=== PATIENT | female | born 1935 | race Caucasian/White ===

== ENCOUNTER 2020-09-04 08:19 | Emergency (ER) | payer MEDICARE, OTHER ==
[~2020-09-04] VITALS: Ht 165.1 cm; Wt 77.1 kg
[2020-09-04 09:14] LABS: Basophils # (auto) 0 10 ^3/uL (0-0.2); Basophils % (auto) 0.2 % (0.0-2.0); Eosinophils # (auto) 0 10 ^3/uL (0-0.8); Hematocrit 41.8 % (36.0-46.0); Hemoglobin 13.8 g/dL (12.2-16.2); Lymphocytes # (auto) 0.3 10 ^3/uL (0.4-5.4); Lymphocytes % (auto) 10.8 % (10.0-50.0); Mean Corpuscular Hemoglobin 28.9 pg (28.0-32.0); Mean Corpuscular Volume 87.3 fL (80.0-100.0); Monocytes # (auto) 0.2 10 ^3/uL (0-1.3); Monocytes % (auto) 5.1 % (0.0-12.0); Neutrophils # (auto) 2.7 10 ^3/uL (1.6-8.6); Neutrophils % (auto) 83.9 % (37.0-80.0); Nucleated Red Blood Cells % 0.3 %; Red Blood Cells 4.78 10^6/uL (4.0-5.20); Red Cell Distribution Width 14.1 % (11.8-14.3); White Blood Cell 3.2 10^3/uL (4.4-10.8)
[2020-09-04 09:34] LABS: INR 1.07 (0.9-1.15)
[2020-09-04 09:38] LABS: Albumin 3.2 g/dL (3.4-5.0); Anion Gap 7 (5-15); Blood Urea Nitrogen 27 mg/dL (7-18); Calcium 8.2 mg/dL (8.5-10.1); Carbon Dioxide 22 mmol/L (21-32); Chloride 109 mmol/L (98-107); Glucose 58 mg/dL (74-106); Magnesium 2.3 mg/dL (1.6-2.6); Potassium 3.7 mmol/L (3.5-5.1); Sodium 138 mmol/L (136-145)
[2020-09-04 09:45] LABS: Alanine Aminotransferase 27 U/L (13-56); Alkaline Phosphatase 68 U/L (45-117); Aspartate Aminotransferase 44 U/L (15-37); BUN/Creatinine Ratio 16.7; Bilirubin, Total 0.4 mg/dL (0.2-1.0); GFR African American 39 mL/min; GFR Non-African American 32 mL/min; Total Protein 7.4 g/dL (6.4-8.2)
[2020-09-04 09:57] LABS: CRP High Sensitivity 8.95 mg/dL (< 0.3)
[2020-09-04] MEDS ORDERED: DEXTROSE 10% 1,000 ML IV ONE (10:15)
[2020-09-04] MEDS ORDERED: AZITHROMYCIN 500MG/ 250ML 250 ML IV ONE (10:15)
[2020-09-04] MEDS ORDERED: DexAMETHasone SOD PHOS 10MG/1ML VIAL INJ IV ONE (10:15)
[2020-09-04] MEDS ORDERED: cefTRIAXone 1GM/50ML D5W 50 ML IV ONE (10:15)
[2020-09-04 16:48] VITALS: BP 122/53
== END 2020-09-04 17:14 | disposition short-term general hospital (02) ==
LOC: ER 08:19 → EDBD 08:19 → ER 17:14
DX: U07.1 COVID-19 (principal); J12.82 Pneumonia due to coronavirus disease 2019; E11.9 Type 2 diabetes mellitus without complications
CPT/HCPCS: 36415; 71045; 80053; 82728; 82962; 83605; 83615; 83735; 84484; 85025; 85610; 85730; 86141; 87040; 87426; 93005; 96361; 96365; 96366; 96368; 96375; 99291; J0456; J0696; J1100

== ENCOUNTER 2020-09-14 05:49 | Emergency (ER) | payer OTHER ==
[~2020-09-14] VITALS: Ht 165.1 cm; Wt 72.6 kg
[2020-09-14] MEDS ORDERED: SODIUM CHLORIDE 0.9% 250 ML IV ONE (06:30)
[2020-09-14 07:19] LABS: Basophils # (auto) 0 10 ^3/uL (0-0.2); Basophils % (auto) 0.1 % (0.0-2.0); Eosinophils # (auto) 0 10 ^3/uL (0-0.8); Eosinophils % (auto) 0.1 % (0.0-7.0); Hematocrit 45.9 % (36.0-46.0); Hemoglobin 15.5 g/dL (12.2-16.2); Lymphocytes # (auto) 0.3 10 ^3/uL (0.4-5.4); Lymphocytes % (auto) 3.3 % (10.0-50.0); Mean Corpuscular Hemoglobin 29.4 pg (28.0-32.0); Mean Corpuscular Hgb Conc. 33.8 g/dL (32.0-36.0); Mean Corpuscular Volume 87.2 fL (80.0-100.0); Monocytes # (auto) 0.5 10 ^3/uL (0-1.3); Monocytes % (auto) 6.8 % (0.0-12.0); Neutrophils # (auto) 7.1 10 ^3/uL (1.6-8.6); Neutrophils % (auto) 89.7 % (37.0-80.0); Platelet Count (auto) 115 10^3/uL (140-450); Red Blood Cells 5.26 10^6/uL (4.0-5.20); Red Cell Distribution Width 13.6 % (11.8-14.3); White Blood Cell 7.9 10^3/uL (4.4-10.8)
[2020-09-14 07:26] LABS: Anion Gap 7 (5-15); BUN/Creatinine Ratio 34.4; Blood Urea Nitrogen 45 mg/dL (7-18); Calcium 9.4 mg/dL (8.5-10.1); Carbon Dioxide 27 mmol/L (21-32); Chloride 104 mmol/L (98-107); GFR African American 50 mL/min; GFR Non-African American 41 mL/min; Glucose 283 mg/dL (74-106); Potassium 4.8 mmol/L (3.5-5.1); Sodium 138 mmol/L (136-145)
[2020-09-14] MEDS ORDERED: SODIUM CHLORIDE 0.9% 1,000 ML IV ONE (07:45)
[2020-09-14] MEDS ORDERED: MECLIZINE HCL 25 MG TAB PO ONE (07:45)
[2020-09-14] MEDS ORDERED: ZINC SULFATE 220mg CAP or TAB PO ONE (08:45)
[2020-09-14] MEDS ORDERED: ASCORBIC ACID 500 MG TAB PO ONE (08:45)
[2020-09-14] MEDS ORDERED: AZITHROMYCIN 500MG/ 250ML 250 ML IV ONE (08:45)
[2020-09-14] MEDS ORDERED: CHOLECALCIFEROL (VITD3) 2,000 UNIT CAP/TAB PO ONE (08:45)
[2020-09-14 09:14] LABS: Lactic Acid w/Reflex 2.8 mmol/L (0.4-2.0)
[2020-09-14 11:31] LABS: Urine Bacteria NONE SEEN /hpf (None Seen); Urine Blood Negative /uL (Negative); Urine Specific Gravity 1.026 (1.001-1.035); Urine WBC 7 /hpf (0 - 5)
[2020-09-14 16:42] VITALS: BP 120/33
== END 2020-09-14 17:01 | disposition short-term general hospital (02) ==
LOC: ER 05:49 → EDBD 05:49 → ER 17:01
DX: U07.1 COVID-19 (principal); R42 Dizziness and giddiness; R55 Syncope and collapse; E11.65 Type 2 diabetes mellitus with hyperglycemia; E11.21 Type 2 diabetes mellitus with diabetic nephropathy; E05.90 Thyrotoxicosis, unspecified without thyrotoxic crisis or storm
CPT/HCPCS: 36415; 70450; 71045; 80048; 81001; 83605; 83735; 84443; 84484; 85025; 87040; 87426; 93005; 96361; 96365; 96366; 99285; J0456; J7030; J7050; J8597

== ENCOUNTER 2021-12-13 07:32 | Inpatient (IN) | payer OTHER ==
[2021-12-13] VITALS (42 sets, daily range): BP systolic 47–147; BP diastolic 25–123
[~2021-12-13] VITALS: Ht 157.5 cm; Wt 74.9 kg
[2021-12-13] MEDS ORDERED: CLOPIDOGREL BISULFATE 75 MG TAB PO ONE (07:45)
[2021-12-13] MEDS ORDERED: HEPARIN SODIUM (PORCINE) 5000 UNITS/ML 1ML VIAL IV ONE (07:45)
[2021-12-13] MEDS ORDERED: HEPARIN DRIP/D5W 100UNITS/ML 250 ML IV SCH (07:45)
[2021-12-13] MEDS ORDERED: ATROPINE SULFATE 1 MG/1 ML VIAL ONE (07:48)
[2021-12-13] MEDS ORDERED: HEPARIN DRIP/D5W 100UNITS/ML 250 ML IV ONE (07:49)
[2021-12-13] MEDS ORDERED: IODIXANOL 320MG/ML 100ML BTL IV ONE ×2 (07:58→08:55)
[2021-12-13] MEDS ORDERED: LIDOCAINE 2%HCL (LOCAL ANESTH.) INJ 20ML MDV ONE (07:58)
[2021-12-13] MEDS ORDERED: ASPirin 81 mg TAB PO ONE (08:00)
[2021-12-13] MEDS ORDERED: ATROPINE SULF 1 MG/10ml SYR IV ONE (08:00)
[2021-12-13 08:11] LABS: Basophils # (auto) 0 10 ^3/uL (0-0.2); Basophils % (auto) 0.4 % (0.0-2.0); Eosinophils # (auto) 0.1 10 ^3/uL (0-0.8); Hematocrit 43.3 % (36.0-46.0); Hemoglobin 13.7 g/dL (12.2-16.2); Lymphocytes # (auto) 3.1 10 ^3/uL (0.4-5.4); Lymphocytes % (auto) 27.1 % (10.0-50.0); Mean Corpuscular Hemoglobin 29.1 pg (28.0-32.0); Mean Corpuscular Hgb Conc. 31.6 g/dL (32.0-36.0); Monocytes % (auto) 8.7 % (0.0-12.0); Neutrophils # (auto) 7.1 10 ^3/uL (1.6-8.6); Neutrophils % (auto) 62.8 % (37.0-80.0); Red Blood Cells 4.71 10^6/uL (4.0-5.20); Red Cell Distribution Width 15.4 % (11.8-14.3); White Blood Cell 11.3 10^3/uL (4.4-10.8)
[2021-12-13] MEDS ORDERED: fentaNYL CITRATE 100 MCG/2 ML VL ONE (08:11)
[2021-12-13] MEDS ORDERED: MIDAZOLAM HCL 2MG/2ML 2ml VIAL (1mg/ml) ONE (08:11)
[2021-12-13] MEDS ORDERED: SODIUM CHL 0.9% 50 ML ONE (08:11)
[2021-12-13] MEDS ORDERED: ANGIOMAX 250 MG VIAL IV ONE (08:11)
[2021-12-13] MEDS ORDERED: SODIUM CHLORIDE 0.9% 1,000 ML IV ONE (08:15)
[2021-12-13] MEDS ORDERED: SODIUM CHLORIDE 0.9% 500 ML IV ONE (08:15)
[2021-12-13 08:27] LABS: INR 1.17 (0.9-1.15); Partial Thromboplastin Time 27.3 sec (24.6-33.4)
[2021-12-13] MEDS ORDERED: LACTATED RINGER'S 1,000 ML IV ONE (08:30)
[2021-12-13 08:35] LABS: Albumin 3.1 g/dL (3.4-5.0); Magnesium 2.7 mg/dL (1.6-2.6); Potassium 4.2 mmol/L (3.5-5.1)
[2021-12-13] MEDS ORDERED: DOPamine 1600MCG/ML D5W 250 ML IV ONE (08:38)
[2021-12-13 08:39] LABS: BUN/Creatinine Ratio 15.7; Bilirubin, Total 0.4 mg/dL (0.2-1.0); Total Protein 6.6 g/dL (6.4-8.2)
[2021-12-13] MEDS ORDERED: ONDANSETRON HCL 4 MG/2 ML VIAL ONE (09:00)
[2021-12-13] MEDS ORDERED: CLOPIDOGREL 300 MG TAB ONE (09:31)
[2021-12-13] MEDS ORDERED: ONDANSETRON HCL 4 MG/2 ML VIAL IV PRN (10:00)
[2021-12-13] MEDS ORDERED: NITROGLYCERIN 0.4 MG SL TAB SL PRN (10:00)
[2021-12-13] MEDS ORDERED: MORPHINE SULFATE INJ 2 MG/ml SYRG IV PRN (10:00)
[2021-12-13] MEDS ORDERED: DEXTROSE (50%) 50ML SYRG IV PRN (10:00)
[2021-12-13] MEDS ORDERED: DOPamine 1600MCG/ML D5W 250 ML IV SCH ×2 (10:00→10:45)
[2021-12-13] MEDS ORDERED: HYDROmorphone HCL 2 MG/ML VL/or syr IV PRN (10:15)
[2021-12-13 10:35] LABS: INR > 8.0 (0.9-1.15); Partial Thromboplastin Time > 139.0 sec (24.6-33.4)
[2021-12-13] MEDS ORDERED: SODIUM CHLORIDE 0.9% 1,000 ML IV SCH (10:45)
[2021-12-13] MEDS ORDERED: NOREPINEPHRINE 8 MG/250ML KIT 250 ML IV ONE (10:47)
[2021-12-13] MEDS: NOREPINEPHRINE 8 MG/250ML KIT 250 ML IV SCH (11:15)
[2021-12-13] MEDS: CLOPIDOGREL BISULFATE 75 MG TAB PO SCH (14:12)
[2021-12-13] MEDS: ASPirin-EC 81 mg tab PO SCH (14:12)
[2021-12-13] MEDS: SODIUM CHLORIDE 0.9% 1,000 ML IV SCH (14:31)
[2021-12-13] MEDS: ACCU-CHEK COMFORT CURVE STRIP VI SCH ×3 (16:00→20:14)
[2021-12-13] MEDS: InsuLIN REG 1unit/0.01ml Soln (100units/ml) SC SCH ×3 (16:00→20:20)
[2021-12-13] MEDS: ONDANSETRON HCL 4 MG/2 ML VIAL IV PRN (19:05)
[2021-12-13] MEDS: ATORVASTATIN 20 MG TAB PO SCH (20:20)
[2021-12-13] MEDS: PANTOPRAZOLE 40 MG/10 ML VIAL INJ IV SCH (20:20)
[2021-12-14] VITALS (81 sets, daily range): BP systolic 76–164; BP diastolic 28–119
[2021-12-14] MEDS: ACCU-CHEK COMFORT CURVE STRIP VI SCH ×6 (00:09→23:21)
[2021-12-14] MEDS: InsuLIN REG 1unit/0.01ml Soln (100units/ml) SC SCH ×6 (00:11→23:25)
[2021-12-14] MEDS: ONDANSETRON HCL 4 MG/2 ML VIAL IV PRN (04:37)
[2021-12-14 05:08] LABS: Potassium 4.7 mmol/L (3.5-5.1)
[2021-12-14 05:11] LABS: BUN/Creatinine Ratio 16.4
[2021-12-14] MEDS: SODIUM CHLORIDE 0.9% 1,000 ML IV SCH (07:51)
[2021-12-14] MEDS: cefTRIAXone 1GM/50ML D5W 50 ML IV SCH (09:19)
[2021-12-14] MEDS: METOPROLOL TARTRATE 25 MG TAB PO SCH (10:00)
[2021-12-14] MEDS: ASPirin-EC 81 mg tab PO SCH (10:03)
[2021-12-14] MEDS: CLOPIDOGREL BISULFATE 75 MG TAB PO SCH (10:03)
[2021-12-14] MEDS: PANTOPRAZOLE 40 MG/10 ML VIAL INJ IV SCH ×2 (10:06→23:20)
[2021-12-14] MEDS: ENOXAPARIN SOD 30 MG/0.3 ML SYRINGE SC SCH (10:07)
[2021-12-14] MEDS: NOREPINEPHRINE 8 MG/250ML KIT 250 ML IV SCH (11:15)
[2021-12-14] MEDS: SODIUM BICARBONATE 50ML VIAL 100 ML in SOD CHL 0.45% 1,000 ML IV SCH (12:08)
[2021-12-14] MEDS ORDERED: HYDROcodone-ACET 5/325MG TAB PO PRN (13:30)
[2021-12-14] MEDS ORDERED: DEXTROSE (50%) 50ML SYRG IV PRN (13:30)
[2021-12-14 16:20] LABS: Urine Bacteria NONE SEEN /hpf (None Seen); Urine Blood 1+ /uL (Negative); Urine Mucus FEW (None Seen); Urine WBC 89 /hpf (0 - 5)
[2021-12-14 16:25] LABS: Urine Specific Gravity > 1.050 (1.001-1.035)
[2021-12-14] MEDS: ATORVASTATIN 20 MG TAB PO SCH (22:00)
[2021-12-15] VITALS (64 sets, daily range): BP systolic 90–128; BP diastolic 38–65
[2021-12-15] MEDS: SODIUM BICARBONATE 50ML VIAL 100 ML in SOD CHL 0.45% 1,000 ML IV SCH (01:30)
[2021-12-15 04:07] LABS: Basophils # (auto) 0.1 10 ^3/uL (0-0.2); Basophils % (auto) 0.5 % (0.0-2.0); Eosinophils # (auto) 0.1 10 ^3/uL (0-0.8); Eosinophils % (auto) 1.3 % (0.0-7.0); Hematocrit 37.8 % (36.0-46.0); Hemoglobin 12.5 g/dL (12.2-16.2); Lymphocytes # (auto) 0.7 10 ^3/uL (0.4-5.4); Lymphocytes % (auto) 7.2 % (10.0-50.0); Mean Corpuscular Hemoglobin 29.5 pg (28.0-32.0); Mean Corpuscular Volume 89.4 fL (80.0-100.0); Monocytes # (auto) 0.8 10 ^3/uL (0-1.3); Monocytes % (auto) 8.5 % (0.0-12.0); Neutrophils # (auto) 8.1 10 ^3/uL (1.6-8.6); Neutrophils % (auto) 82.5 % (37.0-80.0); Red Blood Cells 4.23 10^6/uL (4.0-5.20); Red Cell Distribution Width 15.5 % (11.8-14.3); White Blood Cell 9.8 10^3/uL (4.4-10.8)
[2021-12-15 04:22] LABS: Albumin 2.9 g/dL (3.4-5.0); Calcium 8.1 mg/dL (8.5-10.1); Potassium 4.6 mmol/L (3.5-5.1)
[2021-12-15 04:24] LABS: BUN/Creatinine Ratio 19.7
[2021-12-15 04:27] LABS: Bilirubin, Total 0.6 mg/dL (0.2-1.0); Total Protein 6.1 g/dL (6.4-8.2)
[2021-12-15] MEDS: InsuLIN REG 1unit/0.01ml Soln (100units/ml) SC SCH ×4 (07:00→22:08)
[2021-12-15] MEDS: ACCU-CHEK COMFORT CURVE STRIP VI SCH ×4 (07:17→22:01)
[2021-12-15] MEDS ORDERED: FUROSEMIDE 40 MG/4 ML VIAL IV ONE (10:00)
[2021-12-15] MEDS: METOPROLOL TARTRATE 25 MG TAB PO SCH (10:00)
[2021-12-15] MEDS: LEVALBUTEROL HCL 1.25 MG/3 ML NEB NEB SCH ×2 (11:05→18:37)
[2021-12-15] MEDS: ACETYLCYSTEINE 20%(200MG/ML) SOL 4ML NEB SCH (11:06)
[2021-12-15] MEDS: NOREPINEPHRINE 8 MG/250ML KIT 250 ML IV SCH (11:15)
[2021-12-15] MEDS: cefTRIAXone 1GM/50ML D5W 50 ML IV SCH (11:24)
[2021-12-15] MEDS: ASPirin-EC 81 mg tab PO SCH (11:26)
[2021-12-15] MEDS: PANTOPRAZOLE 40 MG/10 ML VIAL INJ IV SCH (11:26)
[2021-12-15] MEDS: ENOXAPARIN SOD 30 MG/0.3 ML SYRINGE SC SCH (11:28)
[2021-12-15] MEDS: CLOPIDOGREL BISULFATE 75 MG TAB PO SCH (11:28)
[2021-12-15] MEDS ORDERED: LEVOTHYROXINE SODIUM 25 MCG TAB PO ONE (11:45)
[2021-12-15] MEDS: Glucerna Carbsteady SHAKE Vanilla 8oz PO SCH ×2 (13:00→17:19)
[2021-12-15] MEDS: MEROPENEM 500MG IVPB 50 ML IV SCH ×2 (13:17→21:46)
[2021-12-15] MEDS: ATORVASTATIN 20 MG TAB PO SCH (21:45)
[2021-12-16] VITALS (29 sets, daily range): BP systolic 91–122; BP diastolic 43–69
[2021-12-16] MEDS: LEVALBUTEROL HCL 1.25 MG/3 ML NEB NEB SCH ×4 (00:06→19:08)
[2021-12-16] MEDS: ACETYLCYSTEINE 20%(200MG/ML) SOL 4ML NEB SCH ×4 (00:07→19:08)
[2021-12-16 05:14] LABS: Basophils # (auto) 0 10 ^3/uL (0-0.2); Basophils % (auto) 0.5 % (0.0-2.0); Eosinophils # (auto) 0.2 10 ^3/uL (0-0.8); Eosinophils % (auto) 3.5 % (0.0-7.0); Hematocrit 35.2 % (36.0-46.0); Hemoglobin 11.6 g/dL (12.2-16.2); Lymphocytes # (auto) 0.3 10 ^3/uL (0.4-5.4); Lymphocytes % (auto) 3.7 % (10.0-50.0); Mean Corpuscular Hemoglobin 29.2 pg (28.0-32.0); Mean Corpuscular Volume 88.6 fL (80.0-100.0); Monocytes # (auto) 0.6 10 ^3/uL (0-1.3); Monocytes % (auto) 8.1 % (0.0-12.0); Neutrophils # (auto) 5.8 10 ^3/uL (1.6-8.6); Neutrophils % (auto) 84.2 % (37.0-80.0); Red Blood Cells 3.98 10^6/uL (4.0-5.20); Red Cell Distribution Width 14.7 % (11.8-14.3); White Blood Cell 6.9 10^3/uL (4.4-10.8)
[2021-12-16 05:30] LABS: BUN/Creatinine Ratio 23.3; Calcium 8.2 mg/dL (8.5-10.1)
[2021-12-16] MEDS: MEROPENEM 500MG IVPB 50 ML IV SCH ×3 (05:31→21:20)
[2021-12-16] MEDS: LEVOTHYROXINE SODIUM 25 MCG TAB PO SCH (05:31)
[2021-12-16] MEDS: ACCU-CHEK COMFORT CURVE STRIP VI SCH ×4 (05:38→21:20)
[2021-12-16] MEDS: InsuLIN REG 1unit/0.01ml Soln (100units/ml) SC SCH ×4 (05:38→21:26)
[2021-12-16] MEDS: Glucerna Carbsteady SHAKE Vanilla 8oz PO SCH ×3 (09:07→17:20)
[2021-12-16] MEDS: METOPROLOL TARTRATE 25 MG TAB PO SCH (09:19)
[2021-12-16] MEDS ORDERED: FUROSEMIDE 40 MG/4 ML VIAL IV ONE (10:00)
[2021-12-16] MEDS: ASPirin-EC 81 mg tab PO SCH (10:05)
[2021-12-16] MEDS: PANTOPRAZOLE 40 MG TAB PO SCH (10:05)
[2021-12-16] MEDS: CLOPIDOGREL BISULFATE 75 MG TAB PO SCH (10:05)
[2021-12-16] MEDS: NOREPINEPHRINE 8 MG/250ML KIT 250 ML IV SCH (11:15)
[2021-12-16] MEDS: APIXABAN 2.5 MG TAB PO SCH (21:19)
[2021-12-16] MEDS: ATORVASTATIN 20 MG TAB PO SCH (21:19)
[2021-12-17] VITALS (8 sets, daily range): BP systolic 103–122; BP diastolic 47–70
[2021-12-17] MEDS: LEVALBUTEROL HCL 1.25 MG/3 ML NEB NEB SCH ×4 (00:08→19:24)
[2021-12-17 05:07] LABS: Basophils # (auto) 0 10 ^3/uL (0-0.2); Basophils % (auto) 0.2 % (0.0-2.0); Eosinophils # (auto) 0.3 10 ^3/uL (0-0.8); Eosinophils % (auto) 5.4 % (0.0-7.0); Hematocrit 34.1 % (36.0-46.0); Hemoglobin 11.1 g/dL (12.2-16.2); Lymphocytes # (auto) 0.4 10 ^3/uL (0.4-5.4); Lymphocytes % (auto) 7.9 % (10.0-50.0); Mean Corpuscular Hemoglobin 28.9 pg (28.0-32.0); Mean Corpuscular Hgb Conc. 32.7 g/dL (32.0-36.0); Mean Corpuscular Volume 88.2 fL (80.0-100.0); Monocytes # (auto) 0.5 10 ^3/uL (0-1.3); Monocytes % (auto) 9.1 % (0.0-12.0); Neutrophils # (auto) 4.1 10 ^3/uL (1.6-8.6); Neutrophils % (auto) 77.4 % (37.0-80.0); Red Blood Cells 3.86 10^6/uL (4.0-5.20); Red Cell Distribution Width 14.8 % (11.8-14.3); White Blood Cell 5.2 10^3/uL (4.4-10.8)
[2021-12-17 05:23] LABS: INR 1.37 (0.9-1.15); Partial Thromboplastin Time 31.9 sec (24.6-33.4)
[2021-12-17 05:25] LABS: BUN/Creatinine Ratio 25.7; Calcium 8.2 mg/dL (8.5-10.1); Potassium 3.9 mmol/L (3.5-5.1)
[2021-12-17] MEDS: MEROPENEM 500MG IVPB 50 ML IV SCH ×3 (06:06→21:27)
[2021-12-17] MEDS: LEVOTHYROXINE SODIUM 25 MCG TAB PO SCH (06:07)
[2021-12-17] MEDS: ACCU-CHEK COMFORT CURVE STRIP VI SCH ×4 (06:48→21:27)
[2021-12-17] MEDS: InsuLIN REG 1unit/0.01ml Soln (100units/ml) SC SCH ×4 (06:49→21:53)
[2021-12-17] MEDS: ACETYLCYSTEINE 20%(200MG/ML) SOL 4ML NEB SCH (06:57)
[2021-12-17] MEDS: Glucerna Carbsteady SHAKE Vanilla 8oz PO SCH ×3 (08:16→18:11)
[2021-12-17] MEDS: APIXABAN 2.5 MG TAB PO SCH ×2 (10:09→21:27)
[2021-12-17] MEDS: PANTOPRAZOLE 40 MG TAB PO SCH (10:10)
[2021-12-17] MEDS: CLOPIDOGREL BISULFATE 75 MG TAB PO SCH (10:10)
[2021-12-17] MEDS: METOPROLOL TARTRATE 25 MG TAB PO SCH (10:10)
[2021-12-17] MEDS ORDERED: FUROSEMIDE 20 MG/2 ML VIAL IV ONE (10:30)
[2021-12-17] MEDS: ACETAMINOPHEN 325 MG TAB PO PRN (13:40)
[2021-12-17] MEDS: ATORVASTATIN 20 MG TAB PO SCH (21:27)
[2021-12-18] MEDS: ACETYLCYSTEINE 20%(200MG/ML) SOL 4ML NEB SCH ×3 (02:58→18:23)
[2021-12-18] MEDS: LEVALBUTEROL HCL 1.25 MG/3 ML NEB NEB SCH ×4 (02:59→18:23)
[2021-12-18 05:41] VITALS: BP 115/63
[2021-12-18] MEDS: ACCU-CHEK COMFORT CURVE STRIP VI SCH ×4 (06:05→22:31)
[2021-12-18] MEDS: MEROPENEM 500MG IVPB 50 ML IV SCH (06:05)
[2021-12-18] MEDS: LEVOTHYROXINE SODIUM 25 MCG TAB PO SCH (06:42)
[2021-12-18] MEDS: InsuLIN REG 1unit/0.01ml Soln (100units/ml) SC SCH ×4 (06:43→22:30)
[2021-12-18 07:07] LABS: Basophils # (auto) 0 10 ^3/uL (0-0.2); Basophils % (auto) 0.7 % (0.0-2.0); Eosinophils # (auto) 0.2 10 ^3/uL (0-0.8); Hematocrit 38.6 % (36.0-46.0); Hemoglobin 12.5 g/dL (12.2-16.2); Lymphocytes # (auto) 0.8 10 ^3/uL (0.4-5.4); Lymphocytes % (auto) 13.9 % (10.0-50.0); Mean Corpuscular Hemoglobin 28.8 pg (28.0-32.0); Mean Corpuscular Hgb Conc. 32.5 g/dL (32.0-36.0); Mean Corpuscular Volume 88.8 fL (80.0-100.0); Monocytes # (auto) 0.6 10 ^3/uL (0-1.3); Monocytes % (auto) 10.7 % (0.0-12.0); Neutrophils # (auto) 3.9 10 ^3/uL (1.6-8.6); Neutrophils % (auto) 70.7 % (37.0-80.0); Red Blood Cells 4.34 10^6/uL (4.0-5.20); Red Cell Distribution Width 14.7 % (11.8-14.3); White Blood Cell 5.5 10^3/uL (4.4-10.8)
[2021-12-18 08:12] VITALS: BP 115/63
[2021-12-18] MEDS: Glucerna Carbsteady SHAKE Vanilla 8oz PO SCH ×3 (09:00→18:11)
[2021-12-18 09:20] VITALS: BP_SYST 111; BP_SYST 164; BP_DIAS 63; BP_DIAS 96
[2021-12-18] MEDS: FUROSEMIDE 20 MG/2 ML VIAL IV SCH (09:47)
[2021-12-18] MEDS: ACETAMINOPHEN 325 MG TAB PO PRN (09:48)
[2021-12-18] MEDS: METOPROLOL TARTRATE 25 MG TAB PO SCH (09:48)
[2021-12-18] MEDS: CLOPIDOGREL BISULFATE 75 MG TAB PO SCH (09:49)
[2021-12-18] MEDS: PANTOPRAZOLE 40 MG TAB PO SCH (09:49)
[2021-12-18] MEDS: APIXABAN 2.5 MG TAB PO SCH ×2 (09:49→22:31)
[2021-12-18] MEDS ORDERED: guaiFENesin 200 MG/10 ML UD PO PRN (10:00)
[2021-12-18] MEDS: levoFLOXacin 250 MG TAB PO SCH (11:48)
[2021-12-18 13:00] VITALS: BP 112/56
[2021-12-18 16:52] LABS: BUN/Creatinine Ratio 22.4; Calcium 8.7 mg/dL (8.5-10.1); Potassium 3.9 mmol/L (3.5-5.1)
[2021-12-18 17:00] VITALS: BP 111/48
[2021-12-18] MEDS: ATORVASTATIN 20 MG TAB PO SCH (22:31)
[2021-12-18 22:36] VITALS: BP 131/51
[2021-12-19] MEDS: LEVALBUTEROL HCL 1.25 MG/3 ML NEB NEB SCH ×4 (00:06→18:46)
[2021-12-19] MEDS: ACETAMINOPHEN 325 MG TAB PO PRN (02:43)
[2021-12-19 05:00] VITALS: BP 119/59
[2021-12-19 05:58] LABS: Basophils # (auto) 0 10 ^3/uL (0-0.2); Basophils % (auto) 0.9 % (0.0-2.0); Eosinophils # (auto) 0.3 10 ^3/uL (0-0.8); Eosinophils % (auto) 6.2 % (0.0-7.0); Hematocrit 34.6 % (36.0-46.0); Hemoglobin 11.3 g/dL (12.2-16.2); Mean Corpuscular Hemoglobin 29.2 pg (28.0-32.0); Mean Corpuscular Hgb Conc. 32.5 g/dL (32.0-36.0); Mean Corpuscular Volume 89.8 fL (80.0-100.0); Monocytes # (auto) 0.6 10 ^3/uL (0-1.3); Monocytes % (auto) 13.4 % (0.0-12.0); Neutrophils # (auto) 2.6 10 ^3/uL (1.6-8.6); Neutrophils % (auto) 58.5 % (37.0-80.0); Red Blood Cells 3.86 10^6/uL (4.0-5.20); Red Cell Distribution Width 14.5 % (11.8-14.3); White Blood Cell 4.5 10^3/uL (4.4-10.8)
[2021-12-19 06:00] LABS: BUN/Creatinine Ratio 23.2; Calcium 8.5 mg/dL (8.5-10.1); Potassium 3.6 mmol/L (3.5-5.1)
[2021-12-19] MEDS: ACETYLCYSTEINE 20%(200MG/ML) SOL 4ML NEB SCH ×2 (06:36→18:46)
[2021-12-19] MEDS: LEVOTHYROXINE SODIUM 25 MCG TAB PO SCH (06:52)
[2021-12-19] MEDS: InsuLIN REG 1unit/0.01ml Soln (100units/ml) SC SCH ×3 (06:52→18:33)
[2021-12-19] MEDS: ACCU-CHEK COMFORT CURVE STRIP VI SCH ×3 (06:53→17:12)
[2021-12-19 09:00] VITALS: BP 132/60
[2021-12-19] MEDS: Glucerna Carbsteady SHAKE Vanilla 8oz PO SCH ×3 (09:52→18:00)
[2021-12-19] MEDS: FUROSEMIDE 20 MG/2 ML VIAL IV SCH (09:52)
[2021-12-19] MEDS: APIXABAN 2.5 MG TAB PO SCH (09:52)
[2021-12-19] MEDS: levoFLOXacin 250 MG TAB PO SCH (09:53)
[2021-12-19] MEDS: METOPROLOL TARTRATE 25 MG TAB PO SCH (09:53)
[2021-12-19] MEDS: CLOPIDOGREL BISULFATE 75 MG TAB PO SCH (09:53)
[2021-12-19] MEDS: PANTOPRAZOLE 40 MG TAB PO SCH (09:53)
[2021-12-19 13:00] VITALS: BP 130/69
[2021-12-19 17:32] VITALS: BP 123/54
== END 2021-12-19 19:24 | disposition home or self-care (01) | DRG 246 ==
LOC: ER 07:32 → EDBD 07:32 → CATH 1 08:02 → DOU IN ICU 09:51 → ICU CENTRL 16:38 → DOU IN ICU 12-16 23:27 → TELE-CENTR 12-17 05:29
PROVIDERS: ADMIT Specialist; ATTEND Internal Medicine
PROC: 027034Z Dilation of Coronary Artery, One Artery with Drug-eluting Intraluminal Device, Percutaneous Approach (ICD-10-PCS; principal; 2021-12-13)
PROC: 02C03ZZ Extirpation of Matter from Coronary Artery, One Artery, Percutaneous Approach (ICD-10-PCS; 2021-12-13)
PROC: 4A023N7 Measurement of Cardiac Sampling and Pressure, Left Heart, Percutaneous Approach (ICD-10-PCS; 2021-12-13)
PROC: B211YZZ Fluoroscopy of Multiple Coronary Arteries using Other Contrast (ICD-10-PCS; 2021-12-13)
PROC: B215YZZ Fluoroscopy of Left Heart using Other Contrast (ICD-10-PCS; 2021-12-13)
PROC: 5A1223Z Performance of Cardiac Pacing, Continuous (ICD-10-PCS; 2021-12-13)
PROC: B41CYZZ Fluoroscopy of Pelvic Arteries using Other Contrast (ICD-10-PCS; 2021-12-13)
DX: I21.19 ST elevation (STEMI) myocardial infarction involving other coronary artery of inferior wall (principal); I50.41 Acute combined systolic (congestive) and diastolic (congestive) heart failure; R57.0 Cardiogenic shock; J18.9 Pneumonia, unspecified organism; N17.0 Acute kidney failure with tubular necrosis; N39.0 Urinary tract infection, site not specified; I13.0 Hypertensive heart and chronic kidney disease with heart failure and stage 1 through stage 4 chronic kidney disease, or unspecified chronic kidney disease; Z66 Do not resuscitate; N18.9 Chronic kidney disease, unspecified; Z74.01 Bed confinement status; E03.9 Hypothyroidism, unspecified; E11.22 Type 2 diabetes mellitus with diabetic chronic kidney disease; I48.91 Unspecified atrial fibrillation; Z20.822 Contact with and (suspected) exposure to COVID-19; F03.90 Unspecified dementia, unspecified severity, without behavioral disturbance, psychotic disturbance, mood disturbance, and anxiety; R00.1 Bradycardia, unspecified; D69.6 Thrombocytopenia, unspecified; E11.42 Type 2 diabetes mellitus with diabetic polyneuropathy; E66.9 Obesity, unspecified; Z68.30 Body mass index [BMI] 30.0-30.9, adult; Z79.01 Long term (current) use of anticoagulants; Z79.02 Long term (current) use of antithrombotics/antiplatelets; Z79.899 Other long term (current) drug therapy; Z95.5 Presence of coronary angioplasty implant and graft; Z79.82 Long term (current) use of aspirin
CPT/HCPCS: 36415; 71045; 75710; 80048; 80053; 80061; 81001; 82607; 82962; 83036; 83735; 83880; 84100; 84443; 84484; 85025; 85610; 85730; 87081; 87086; 87088; 87186; 92933; 93005; 93306; 93458; 94640; 96365; 96375; 97110; 97116; 97163; 97530; 99152; 99153; 99291; C1751; C1874; C1887; C9113; G0378; J0461; J0696; J1815; J2185; J2250; J2405; Q9967